=== PATIENT | female | born 1985 | race Caucasian/White ===

== ENCOUNTER → 2017-04-19 | Outpatient (REF) | LOC: WSOH 13:08 → WSPT 14:15 | DX: Z02.89 Encounter for other administrative examinations (principal) ==

== ENCOUNTER → 2017-04-21 | Outpatient (REF) | LOC: WSOH 15:51 | DX: Z01.84 Encounter for antibody response examination (principal) ==

== ENCOUNTER → 2017-04-21 | Outpatient (REF) | LOC: WSOH 15:47 | DX: Z02.89 Encounter for other administrative examinations (principal) ==

== ENCOUNTER 2018-09-27 12:00 | Outpatient (CLI) | payer OTHER ==
[~2018-09-27] VITALS: Ht 160 cm; Wt 80.0 kg
[2018-09-27 12:06] VITALS: BP 131/88; PULSE 116; TEMP 97.6
[2018-09-27 12:15] VITALS: BP 131/88; PULSE 116; TEMP 97.6
--- NOTE | 2018-09-27 13:17 | NUR ---
1206 PATIENT HERE FOR COMPLAINTS OF SOME BLOODY SHOW WHEN SHE WIPES. ASSESSMENT COMPLETED. EFM ON FHT 120'S BABY VERY ACTIVE. NO CONTRACTIONS. SVE 0/50/HIGH NO BLOODY SHOW NOTED.
--- NOTE | 2018-09-27 13:19 | NUR ---
[address] RAMOS UPDATED. ORDERS TO DISMISS HOME. ALL VERBAL UNDERSTANDING NOTED. WITH VERBAL UNDERSTANDING.
== END 2018-09-27 13:20 | disposition home or self-care (01) ==
LOC: LDRO 12:00 → LDR 12:15 → LDRO 13:20
DX: O62.9 Abnormality of forces of labor, unspecified (principal); Z3A.35 35 weeks gestation of pregnancy
CPT/HCPCS: OP

== ENCOUNTER 2018-10-15 20:21 | Outpatient (CLI) | payer OTHER ==
[~2018-10-15] VITALS: Ht 157.5 cm; Wt 80.0 kg
--- NOTE | 2018-10-15 20:05 | NUR ---
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 DENIES LEAKING AMNIO FLUID. STATES THIS IS LAST DAY TO WORK BEFORE SYDNIE.CX LTC 2044 MORE RESTFUL AND RELAXED. REPORT TO DR RAMOS/ DISCHARGE ORDERS
[2018-10-15 20:33] VITALS: BP 131/79; PULSE 102
[2018-10-15] MEDS ORDERED: PRENATAL MVI (20:40)
[2018-10-15] MEDS ORDERED: ZYRTEC5 MG (20:40)
[2018-10-15] MEDS ORDERED: PRILOSEC 20MG20 MG PO (20:41)
[2018-10-15 20:43] VITALS: BP 131/79; PULSE 102; TEMP 98.3
== END 2018-10-15 21:25 | disposition home or self-care (01) ==
LOC: LDRO 20:21 → LDR 21:25 → LDRO 21:25
DX: O26.893 Other specified pregnancy related conditions, third trimester (principal); R42 Dizziness and giddiness; R11.0 Nausea; Z3A.37 37 weeks gestation of pregnancy
CPT/HCPCS: OP

== ENCOUNTER 2018-10-23 06:40 | Inpatient (IN) | payer OTHER ==
[~2018-10-23] VITALS: Ht 157.6 cm; Wt 80.0 kg
[2018-10-23] VITALS (54 sets, daily range): BP systolic 110–156; BP diastolic 52–96; PULSE 71–108; TEMP 97.3–98.5
[~2018-10-23 06:40] MED LIST: PRENATAL MVI; PRILOSEC 20MG20 MG PO; ZYRTEC5 MG
--- NOTE | 2018-10-23 06:50 | NUR ---
Pt arrives on unit ambulatory for IOL at 38.6 weeks gestation. G3L2 for TOLAC with CHTN and GDM affecting . Changed into clean gown. EFM and toco applied. VSS. SVE per this RN /-3. IV started in LH. Labs drawn. LR infusing. BS obtained at 164. Admission assessment completed. Consents signed. Pt updated on POC. Safety reviewed. No questions or concern at this time. Bed locked in low position. Call light within reach.
[2018-10-23 07:30] LABS: BASO % 0.4 % (0.0-2.0); EOS # 0.2 (0.0-0.7); EOS % 1.9 % (0-4.0); GRAN # 6.6 (1.4-6.5); GRAN % 65.5 % (42.2-75.2); LYMPH # 2.6 (1.2-3.4); LYMPH % 25.8 % (20.0-51.0); MEAN CELL VOLUME 85 fl (80.0-100.0); MEAN CORPUSCULAR HGB CONC 31 g/dl (33.0-37.0); MEAN PLATELET VOLUME 12.4 fl (7.4-10.4); MONO # 0.6 (0.1-0.6); MONO % 5.8 % (1.7-9.3); PLATELET COUNT 206 K/mm3 (130-400); RED BLOOD COUNT 3.62 M/mm3 (4.10-5.30)
[2018-10-23 07:32] LABS: HEMATOCRIT 30.6 % (37.0-47.0); HEMOGLOBIN 9.4 g/dl (12.5-16.0); MEAN CORPUSCULAR HEMOGLOBIN 26 pg (27.0-31.0)
--- NOTE | 2018-10-23 09:05 | NUR ---
Dr. Parish at bedside. Orders to stop pitocin infusion for martin bulb placement. Pt up to void. 0909-Martin bulb placement attempted by Dr. Parish. Unable to place. Orders for pitocin induction. Pt updated on POC. No questions or concerns at this time.
--- NOTE | 2018-10-23 12:09 | NUR ---
Dr. Parish at bedside to reattempt martin bulb placement. Physician using carmalt instruments to guide martin bulb. AROM of clear fluid performed. Pericare performed. SVE per provider /. Pt updated on POC. No questions or concerns at this time.
--- NOTE | 2018-10-23 12:45 | NUR ---
Pt sitting upright for epidural placement. Difficulty tracing FHR due to maternal position. RN at bedside adjusting monitors. FHR audible. Pitocin shut off during epidural placement. 1257-Test dose administered by Luciana Raymundo CRNA. No adverse effects noted. See anesthesia record. Pt repositioned WL. FHR tracing. Updated on POC. Safety reviewed. No questions or concers at this time.
--- NOTE | 2018-10-23 14:45 | NUR ---
FHR noted in the 60-90 BPM. SVE per this RN unchanged. Pt repositioned RL. LR bolus infusing. Pitocin off. O2 applied via simple mask at 10L. Dr. Parish notified. Requested to come to unit. FSE attempt. 1500-Dr. Parish on unit. SVE per provider /-2. FSE and IUPC applied. FHR returns to 125 BPM baseline with accelerations no decels. Orders to keep pitocin off for 30minutes and restart at 2mU.
--- NOTE | 2018-10-23 17:00 | NUR ---
Dr. Parish requested to unit for decelerations and unchanged SVE. LR bolus infusing. O2 applied at 10L via simple mask. Orders to prep patient for delivery. Skin prep performed. Chlorohexadine prep performed. 1519-Pt taken off monitors and to OR via bed.
--- NOTE | 2018-10-23 23:20 | NUR ---
0 PERICARE DONE. MOVES WELL IN BED. PERCOCET X2 PO AND SCHEDULED MOTRIN GIVEN. BABY TO BREAST
[2018-10-24 02:30] VITALS: BP 127/73; PULSE 87; TEMP 97.8
[2018-10-24 08:03] LABS: HEMATOCRIT 27.3 % (37.0-47.0); HEMOGLOBIN 8.6 g/dl (12.5-16.0)
[2018-10-24 08:29] VITALS: BP 114/68; PULSE 76; TEMP 97.8
--- NOTE | 2018-10-24 10:05 | NUR ---
Initial visit; Mom thanked Chapain for offering congratulations and God's blessings for the of her son. Can Sealer thanked family for choosing [facility].
[2018-10-24] MEDS ORDERED: PERCOCET 325 MG1 TA2 PO (14:21)
[2018-10-24] MEDS ORDERED: IBU600 MG PO (14:21)
[2018-10-24 15:50] VITALS: BP 128/82; PULSE 78; TEMP 97.2
[2018-10-24 19:30] VITALS: BP 132/81; PULSE 97; TEMP 97.6
--- NOTE | 2018-10-24 19:30 | NUR ---
To call out when she is ready to shower so can have VS.
--- NOTE | 2018-10-24 23:30 | NUR ---
Patient has not showered or removed her dressing yet. To feed then call for him to go to the [facility] while she showers.
[2018-10-25 06:52] VITALS: BP 128/70; PULSE 94; TEMP 98.4
--- NOTE | 2018-10-25 13:00 | NUR ---
Discharge instructions given. Car seat checked. Pt leaves unit ambulatory with this RN. No questions or concerns.
== END 2018-10-25 13:00 | disposition home or self-care (01) | DRG 787 ==
LOC: LDR 06:40 → OB 06:40 → LDR 06:45 → OB 18:30
PROVIDERS: ADMIT Obstetrics & Gynecology
PROC: 10D00Z1 Extraction of Products of Conception, Low, Open Approach (ICD-10-PCS; principal; 2018-10-23)
PROC: 10907ZC Drainage of Amniotic Fluid, Therapeutic from Products of Conception, Via Natural or Artificial Opening (ICD-10-PCS; 2018-10-23)
PROC: 3E033VJ Introduction of Other Hormone into Peripheral Vein, Percutaneous Approach (ICD-10-PCS; 2018-10-23)
DX: O13.4 Gestational [pregnancy-induced] hypertension without significant proteinuria, complicating childbirth (principal); D62 Acute posthemorrhagic anemia; Z3A.38 38 weeks gestation of pregnancy; Z37.0 Single live birth; O24.420 Gestational diabetes mellitus in childbirth, diet controlled; O76 Abnormality in fetal heart rate and rhythm complicating labor and delivery; O34.211 Maternal care for low transverse scar from previous cesarean delivery; O99.02 Anemia complicating childbirth; D64.89 Other specified anemias; O69.81X0 Labor and delivery complicated by cord around neck, without compression, not applicable or unspecified; Z88.2 Allergy status to sulfonamides
CPT/HCPCS: J0690; J1885; J2270; J2370; J2405; J2590; J7120

== ENCOUNTER 2019-03-19 05:55 | Observation (INO) | payer OTHER ==
[~2019-03-19] VITALS: Wt 75.0 kg
[2019-03-19] VITALS (9 sets, daily range): BP systolic 108–126; BP diastolic 62–78; PULSE 66–86; TEMP 97.7–98.4
[~2019-03-19 05:55] MED LIST changes: +IBU600 MG PO; +PERCOCET 325 MG1 TA2 PO; -PRENATAL MVI; +PRENATAL MVI PO; -ZYRTEC5 MG; +ZYRTEC5 MG PO
[2019-03-19 06:27] LABS: BASO # 0.1 (0.0-0.2); BASO % 0.6 % (0.0-2.0); EOS # 0.2 (0.0-0.7); EOS % 2.4 % (0-4.0); GRAN # 5.6 (1.4-6.5); HEMATOCRIT 37.3 % (37.0-47.0); HEMOGLOBIN 11.6 g/dl (12.5-16.0); LYMPH # 2.1 (1.2-3.4); LYMPH % 24.4 % (20.0-51.0); MEAN CELL VOLUME 83 fl (80.0-100.0); MEAN CORPUSCULAR HEMOGLOBIN 26 pg (27.0-31.0); MEAN CORPUSCULAR HGB CONC 31 g/dl (33.0-37.0); MONO # 0.6 (0.1-0.6); MONO % 7.4 % (1.7-9.3); PLATELET COUNT 218 K/mm3 (130-400); RED BLOOD COUNT 4.47 M/mm3 (4.10-5.30); REDCELL DISTRIBUTION WIDTH-CV 14.7 % (11.5-14.5)
[2019-03-19 06:40] LABS: ALANINE AMINOTRANSFERASE 34 U/L (9-52); ALBUMIN 4.5 gm/dL (3.5-5.0); ALKALINE PHOSPHATASE 59 U/L (50-136); ANION GAP 12 mmol/L (7-16); AST,SGOT 57 U/L (15-37); BILIRUBIN,TOTAL 0.4 mg/dL (0.0-1.0); BLOOD UREA NITROGEN 14 mg/dL (7-17); C-REACTIVE PROTEIN < 0.5 mg/dL (0.0-0.9); CALCIUM 9.7 mg/dL (8.4-10.2); CARBON DIOXIDE 24 mmol/L (22-30); CHLORIDE 108 mmol/L (98-107); CREATININE, serum 0.65 (0.52-1.25); GLUCOSE 126 mg/dL (74-106); LIPASE 110 U/L (23-300); POTASSIUM 4.2 mmol/L (3.4-5.0); SODIUM 144 mmol/L (137-145); TOTAL PROTEIN 7.5 gm/dL (6.4-8.2)
[2019-03-19 07:28] LABS: COLLECTION METHOD CLEAN CATCH
[2019-03-19 07:36] LABS: MUCOUS Present /lpf; PH 5 (5-8); SQUAMOUS EPITHELIAL 0-2 /hpf; URINE APPEARANCE Clear; URINE BACTERIA None Seen /hpf; URINE BILIRUBIN Negative (NEGATIVE); URINE BLOOD Negative (NEGATIVE); URINE COLOR Yellow; URINE GLUCOSE Negative (NEGATIVE); URINE KETONE Negative (NEGATIVE); URINE LEUKOCYTE ESTERASE Negative (NEGATIVE); URINE NITRATE Negative (NEGATIVE); URINE PROTEIN(semi-quant) Negative (NEGATIVE); URINE RBC 0-2 /hpf; URINE UROBILINOGEN Negative (NEGATIVE)
[2019-03-19] MEDS ORDERED: PRILOTC PO (12:44)
[2019-03-19] MEDS ORDERED: CAMILA0.35 MG PO (12:44)
[2019-03-19] MEDS ORDERED: ROLAIDS 675 MG-1 CT2 PO (12:45)
--- NOTE | 2019-03-19 12:46 | NUR ---
TO RM 6 AT 1220- CALL LIGHT IN REACH NO ONE WITH PATIENT AT THIS TIME.
--- NOTE | 2019-03-19 13:34 | NUR ---
RECEIVED DILAUDID 0.5MG IV PER C/O INCREASED PAIN 02/07
--- NOTE | 2019-03-19 15:02 | NUR ---
AMBULATED TO BATHROOM, VOIDED AND TOLERATED WELL RECEIVED NEW WARM BLANKET
[2019-03-20] VITALS (8 sets, daily range): BP systolic 114–128; BP diastolic 51–79; PULSE 63–75; TEMP 98–98.3
[2019-03-20] MEDS ORDERED: PERCOCET 325 MG1 TA2 PO (10:10)
[2019-03-20] MEDS ORDERED: MOTRIN 600600 MG/TAB PO (10:11)
[2019-03-20] MEDS ORDERED: COLACE 100100 MG/CAP PO (10:11)
[2019-03-20] MEDS ORDERED: AMOXICILLIN 8751 TAB PO (10:12)
--- NOTE | 2019-03-20 10:17 | NUR ---
LAMAR met with the patient to discuss a discharge plan. The pt lives in [place] with her Joaquín and kids. The pt does not use DME and reports independence with ADLs. The pt's PCP is Dr. Salvador and pt receives medications from [facility] with no difficulties. The pt does not have advanced directives in the EMR but reports they are completed. The pt plans to return home upon discharge with Joaquín providing transportation. There are no additional needs at this time.
--- NOTE | 2019-03-20 12:00 | NUR ---
Vlad has been doing well this am. Minimal complaints of pain. She is having a headache. Discussed that patient drinks a lot of caffeine and has not had any. No other changes at this time. Call light within reach. Patient is NPO for procedure this afternoon.
--- NOTE | 2019-03-20 15:00 | NUR ---
Patient back from her ERCP. She is alert and oriented. She stated her headache is feeling better. Discussed getting some clear liquids to starts for eating/drinking. Patient denies nausea. No other changes at this time. Call light within reach.
--- NOTE | 2019-03-20 18:30 | NUR ---
Patient at a low fat dinner. Denies nausea. One percocet given for pain at this time. Dr Garcia has put discharge orders in. 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 No other changes at this time. Call light within reach.
--- NOTE | 2019-03-20 19:30 | NUR ---
Pt. sitting up in bed at this time. Pt. is A&OX3, assessment complete. Pt. denies pain or other needs. Pt. has met criteria to discharge, will complete paperwork.
--- NOTE | 2019-03-20 19:50 | NUR ---
Pt. given discharge instructions. Reviewed discharge inscructions, scripts, education, health summary and follow up appointment with pt. Pt. voices understanding and denies questions. No IV access at this time. Pt. getting dressed and will call when ready.
--- NOTE | 2019-03-20 20:00 | NUR ---
Pt. escorted out by TIMA Davis.
== END 2019-03-20 20:00 | disposition home or self-care (01) ==
LOC: COL.ER 05:55 → INPTSU 11:09 → SURG 11:09
PROVIDERS: Emergency Medicine; ADMIT Surgery
DX: K80.66 Calculus of gallbladder and bile duct with acute and chronic cholecystitis without obstruction (principal); F17.210 Nicotine dependence, cigarettes, uncomplicated; J45.909 Unspecified asthma, uncomplicated; K21.9 Gastro-esophageal reflux disease without esophagitis; K83.8 Other specified diseases of biliary tract; Z88.2 Allergy status to sulfonamides
CPT/HCPCS: C1769; G0378; G0379; J1170; J1610; J1885; J2405; J2543; J2550; J2704; J3010; J7030; J7120; Q9967